=== PATIENT | female | born 1995 | race Caucasian/White ===

== ENCOUNTER 2021-07-18 14:49 | Emergency (ER) | payer OTHER, SELFPAY ==
[2021-07-18 14:54] VITALS: BP 127/76; PULSE 80; RESP 16; TEMP 36.7; O2SAT 98; BMI 26.5
--- NOTE | 2021-07-18 18:38 | ED.EXTPRO ---
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 She states the symptoms have been going on for the past several days. Was a gradual onset. Denies any trauma. No neck pain. No real defined pain in that hand his stress weakness to metal fabricating shop helper and then the tingling. She does have tingling in all of her fingers but it does seem to be localized more to the thumb index and middle finger. She does have neck pain. This neck pain is not new. She has had it for many years. Related Data Previous Rx's Medication Instructions Recorded prednisone 20 mg tablet 20 mg PO DAILY 6 Days #6 tab 07/18/21 Allergies Allergy/AdvReac Type Severity Reaction Status Date / Time No Known Drug Allergies Allergy Verified 07/18/21 15:01 Review of Systems Constitutional Constitutional: Denies fever(s) and Denies headache(s) ENT Ears, Nose, Mouth, and Throat: Denies headache(s) Musculoskeletal Musculoskeletal: Reports system reviewed and no additional complaints, except as documented and Reports as per HPI Integumentary/Breasts Skin/Breast: Reports system reviewed and no additional complaints, except as documented and Reports as per HPI Neurologic Neurologic: Reports system reviewed and no additional complaints, except as documented, Reports as per HPI and Denies headache(s) Hematologic/Lymphatic On Anticoagulants: No Patient History Medical History Chronic neck pain Social History Smoking Status: Never smoker Smoking Status: Never smoker alcohol intake frequency: a few times a month Substance Use Type: does not use Exam Initial Vital Signs Initial Vital Signs: Vital Signs Temperature 98.0 F 07/18/21 14:54 Pulse Rate 80 07/18/21 14:54 Respiratory Rate 16 07/18/21 14:54 Blood Pressure 127/76 07/18/21 14:54 Pulse Oximetry 98 07/18/21 14:54 Const General: cooperative, healthy appearing, comfortable and well developed Limitations: mental status not altered [facility] Head: normal to inspection and normocephalic Resp Effort & Inspection: normal respiratory effort Cardio Pulses: radial pulses present on the left Skin Lesions: no lesions Rashes: no rashes Neuro General: patient alert, patient awake and patient oriented x3 Cognition: normal cognition Gait: normal gait Other: Patient reports decreased sensation to light touch throughout the median ulnar and radial nerve distribution of her left hand although it does seem to be localized more in the median nerve distribution. She does not have a tinel sign. She does have 3/5 metal fabricating shop helper strength on the left compared to a 5/5 on the right. Her wrist flexion and extension are equal bilaterally. Strength is equal bilateral. Flexion extension at the elbow to include strength is equal bilateral. Abduction and adduction to the shoulders are equal bilateral with equal strength. She has a negative Spurling maneuver Extrem General: normal to inspection, capillary refill normal and No edema Psych Appearance: grossly normal and well kempt Course Orders Ordered: Discontinued Medications Prednisone (Prednisone 20 Mg Tablet) 20 mg PO NOW ONE Stop: 07/18/21 18:40 Last Admin: 07/18/21 18:52 Dose: 20 mg Documented by: LATRICIA Vital Signs Vital signs: Vital Signs - 8 hr 07/18/21 14:54 07/18/21 18:54 Temperature 98.0 F Pulse Rate 80 69 Respiratory Rate 16 16 Blood Pressure 127/76 114/75 Pulse Oximetry 98 100 MDM - Extremity (Nontraumatic) MDM Narrative Medical decision making narrative: Low suspicion for fractures hold on any radiologic studies. Initially I thought her presentation would be consistent with carpal tunnel syndrome however the tingling sensation that she is having in her left hand does seem to include all of her fingers and not just the median nerve distribution although granted it is more pronounced in the median nerve distribution. She does have decreased metal fabricating shop helper strength in the left although the strength in her wrist elbow and shoulders are equal. She has no other neurologic symptoms. Unsure the exact etiology the patient's symptoms but given her presentation I feel that this is more of a proximal issue most likely a nerve inflammation. Start her on steroids to help with this for the next couple days. She will then start on anti-inflammatories afterwards. If her symptoms continue or do not improve we did discuss return precautions to include returning to her primary doctor. She expressed understanding and agreement of plan. Discharge Plan Departure Patient Disposition: Home Clinical Impression: Neuropathy Instructions: DI for Numbness/Tingling Activity Restrictions/Additional Instructions: I do recommend that you keep all of your scheduled medical appointments. Use the steroids as directed. They were electronically transmitted to the [facility] [place] After you complete the course of this start on anti-inflammatories such as Motrin/Naprosyn. Return to the emergency department for any worsening symptoms like we discussed. Prescriptions: New prednisone 20 mg tablet 20 mg PO DAILY 6 Days Qty: 6 0RF
[2021-07-18] MEDS: predniSONE 20 MG TABLET PO (18:52)
[2021-07-18 18:54] VITALS: BP 114/75; PULSE 69; RESP 16; O2SAT 100
--- NOTE | 2021-07-19 11:40 | PC.NURSE ---
Pt called stating that [facility] pharmacy in [place] was closed today and requested that script be called into [facility]. Prednisone 20 mg po daily x 6 days , Dr. Peña, No refills, called in. Pt notified by phone.
== END 2021-07-18 18:57 | disposition home or self-care (01) ==
PROVIDERS: Emergency Provider Emergency Medicine
DX: G62.9 Polyneuropathy, unspecified (principal)
CPT/HCPCS: 99283

== ENCOUNTER 2021-08-20 04:20 | Emergency (ER) | payer OTHER, SELFPAY ==
[2021-08-20 04:23] VITALS: BP 161/103; PULSE 80; RESP 18; TEMP 36.6; O2SAT 99; BMI 23.8
--- NOTE | 2021-08-20 04:43 | ED_ITS ---
HPI - Headache General Chief Complaint: Headache Stated Complaint: d/v and migraine x5 days Time Seen by Provider: 08/20/21 04:22 Source: patient Mode of arrival: Ambulatory Limitations: no limitations History of Present Illness HPI Narrative: Patient is a 26-year-old female. Has a history of migraine headaches. Has medications for migraines. States that for the past 5 days she has had a headache which she states is somewhat different to her migraines. In character feels somewhat like prior headaches but this seems to be more intense. Has had nausea but no vomiting. Has tried her medications without much improvement. No fevers. Generally does not feel well. Related Data Previous Rx's Medication Instructions Recorded ondansetron 4 mg disintegrating 4 mg PO Q6H PRN #12 tab 08/20/21 tablet rizatriptan 10 mg tablet See Rx Instructions .ROUTE 08/20/21 .COMPLEX #9 tab Allergies Allergy/AdvReac Type Severity Reaction Status Date / Time No Known Drug Allergies Allergy Verified 07/19/21 11:21 Review of Systems Constitutional Constitutional: Reports body ache(s), Denies fever(s) and Reports headache(s) Eyes Eyes: Reports system reviewed and no additional complaints, except as documented ENT Ears, Nose, Mouth, and Throat: Reports system reviewed and no additional complaints, except as documented and Reports headache(s) Musculoskeletal Musculoskeletal: Reports system reviewed and no additional complaints, except as documented Neurologic Neurologic: Reports system reviewed and no additional complaints, except as documented and Reports headache(s) Hematologic/Lymphatic On Anticoagulants: No Patient History Medical History Chronic neck pain Social History Smoking Status: Never smoker Smoking Status: Never smoker alcohol intake frequency: a few times a month Substance Use Type: does not use Exam Initial Vital Signs Initial Vital Signs: Vital Signs Temperature 97.8 F 08/20/21 04:23 Pulse Rate 80 08/20/21 04:23 Respiratory Rate 18 08/20/21 04:23 Blood Pressure 161/103 H 08/20/21 04:23 Pulse Oximetry 99 08/20/21 04:23 Const General: cooperative HENMT Head: normal to inspection and normocephalic Resp Effort & Inspection: normal respiratory effort Cardio Rate: regular rate Skin General: no rashes or lesions noted Neuro General: patient alert, patient awake and patient oriented x3 Cognition: normal cognition Speech: speech normal Extrem General: normal to inspection and capillary refill normal Psych Appearance: grossly normal and well kempt Course Orders Ordered: ED Orders 08/20/21 04:25 COVID19 -Nasal swab/Pre-Proc Stat 08/20/21 05:03 Basic Metabolic Panel Stat Complete Blood Count AUTO DIFF Stat Discontinued Medications Acetaminophen (Acetaminophen 325 Mg Tablet) 650 mg PO NOW ONE Stop: 08/20/21 04:44 Last Admin: 08/20/21 05:11 Dose: 650 mg Documented by: RYLAND Diphenhydramine HCl (Diphenhydramine 50 Mg/Ml Vial) 25 mg IV NOW ONE Stop: 08/20/21 04:44 Last Admin: 08/20/21 05:13 Dose: 25 mg Documented by: RYLAND Sodium Chloride (Normal Saline 0.9%) 1,000 mls @ 1,000 mls/hr IV BOLUS ONE Stop: 08/20/21 05:42 Last Infusion: 08/20/21 05:46 Dose: 0 mls/hr Documented by: Admin: 08/20/21 05:11 Dose: 1,000 mls/hr Documented by: RYLAND Ketorolac Tromethamine (Ketorolac 30 Mg/Ml Vial) 30 mg IV NOW ONE Stop: 08/20/21 04:44 Last Admin: 08/20/21 05:13 Dose: 30 mg Documented by: RYLAND Metoclopramide HCl (Metoclopramide 10 Mg/2 Ml Inj) 10 mg IV NOW ONE Stop: 08/20/21 04:44 Last Admin: 08/20/21 05:13 Dose: 10 mg Documented by: RYLAND Ondansetron HCl (Ondansetron 4 Mg Odt Prepack) 1 bottle MISC SEEINSTR ONE Stop: 08/20/21 05:33 Last Admin: 08/20/21 05:40 Dose: 1 bottle Documented by: RYLAND Vital Signs Vital signs: Vital Signs - 8 hr 08/20/21 04:23 Temperature 97.8 F Pulse Rate 80 Respiratory Rate 18 Blood Pressure 161/103 H Pulse Oximetry 99 MDM - Headache Lab Data Attestation: I reviewed the patient's lab results. Result diagrams: 08/20/21 05:03 08/20/21 05:03 Labs: Lab Results 08/20/21 08/20/21 08/20/21 Range/Units 04:25 05:03 05:03 WBC 8.1 (4.5-11.0) X10^3/uL RBC 4.40 (4.0-5.2) X10^6/uL Hgb 13.1 (12.0-16.0) g/dL Hct 38.1 (36-46) % MCV 86.6 (80-100) fL MCH 29.7 (26-34) PG MCHC 34.3 (30-36) % RDW 12.8 (11.6-14.8) % Plt Count 260 (150-400) X10^3/uL Neut % (Auto) 63.5 (50-75) % Lymph % (Auto) 28.7 (25-40) % [place] % (Auto) 6.4 (3-14) % Eos % (Auto) 0.8 L (2-4) % Baso % (Auto) 0.6 (0-2) % Neut # (Auto) 5200 (2420-8961) /uL Lymph # (Auto) 2300 (7930-5709) /uL [place] # (Auto) 500 (0-900) /uL Eos # (Auto) 100 (0-450) /uL Baso # (Auto) 100 (0-100) /uL Sodium 138 (137-145) mmol/L Potassium 3.6 (3.4-5.1) mmol/L Chloride 106 (98-107) mmol/L Carbon Dioxide 29 (22-32) mmol/L BUN 8 (7-17) mg/dL Creatinine 0.67 (0.52-1.04) mg/dL Estimated GFR > 60.0 (>60) mL/min BUN/Creatinine Ratio 11.9 (6-22) Glucose 104 H (70-100) mg/dL Calcium 9.7 (8.4-10.2) mg/dL SARS-CoV-2 (PCR) Negative (Negative) Point of Care Testing Test Results Negative Urine Dip Bedside Urine Glucose Negative Bedside Urine Bilirubin - Negative Bedside Urine Ketone - Negative Urine Specific [place] 1.005 Bedside Urine Occult Blood - Negative Bedside Urine pH 7.0 Bedside Urine Protein - Negative Bedside Urine Urobilinogen - Negative Bedside Urine Nitrite - Negative Bedside Urine Leukocytes - Negative Esterase MDM Narrative Medical decision making narrative: Normal neurologic exam. Labs unremarkable patient received medications and shortly afterwards she received a call from her stating that he needed to go into work and that she needed to come home and watch the kids. Patient stated that she needed to leave. She did report some improvement of her symptoms in the short amount of time here. She does have a ride home. I feel that we can hold on radiologic studies. She was given return precautions. She expressed understanding and agreement. Discharge Plan Departure Patient Disposition: Home Clinical Impression: Headache Instructions: DI for Headache Activity Restrictions/Additional Instructions: Use the nausea medication as needed. Try to increase your fluid intake over the next couple days this will most likely help your headache as well. Contact your primary doctor for a follow-up. Return to the emergency department for any new or worsening symptoms Prescriptions: New ondansetron 4 mg tablet,disintegrating 4 mg PO Q6H PRN (Reason: nausea and vomiting) Qty: 12 0RF rizatriptan 10 mg tablet See Rx Instructions .ROUTE .COMPLEX Qty: 9 0RF Rx Instructions: take 1 tab at onset of headache; if no relief may repeat 1 tab after at least 2 hrs; max = 3 tabs/24 hr
[2021-08-20 04:46] LABS: COVID19 -Nasal RAPID Negative (Negative)
[2021-08-20 05:10] LABS: Add Manual Diff / Slide Review NO; Basophils Absolute Auto 100 /uL (0-100); Basophils Percent Auto 0.6 % (0-2); Eosinophils Absolute Auto 100 /uL (0-450); Eosinophils Percent Auto 0.8 % (2-4); Hematocrit 38.1 % (36-46); Hemoglobin 13.1 g/dL (12.0-16.0); Lymphocytes Absolute Auto 2300 /uL (1100-4500); Lymphocytes Percent Auto 28.7 % (25-40); Mean Corpuscular HGB Conc 34.3 % (30-36); Mean Corpuscular Hemoglobin 29.7 PG (26-34); Mean Corpuscular Volume 86.6 fL (80-100); Monocytes Absolute Auto 500 /uL (0-900); Monocytes Percent Auto 6.4 % (3-14); Neutrophils Absolute Auto 5200 /uL (1500-7000); Neutrophils Percent Auto 63.5 % (50-75); Platelet Count 260 X10^3/uL (150-400); Red Cell Distribution Width 12.8 % (11.6-14.8); White Blood Cell Count 8.1 X10^3/uL (4.5-11.0)
[2021-08-20] MEDS: ACETAMINOPHEN 325 MG TABLET 650 MG PO (05:11)
[2021-08-20] MEDS: SODIUM CHLORIDE 0.9% 1,000 ML 1000 ML IV (05:11)
[2021-08-20] MEDS: diphenhydrAMINE 50 MG/ML VIAL 25 MG IV (05:13)
[2021-08-20] MEDS: KETOROLAC 30 MG/ML VIAL IV (05:13)
[2021-08-20] MEDS: METOCLOPRAMIDE 10 MG/2 ML INJ IV (05:13)
[2021-08-20 05:20] LABS: BUN Creatinine Ratio 11.9 (6-22); Blood Urea Nitrogen 8 mg/dL (7-17); Calcium 9.7 mg/dL (8.4-10.2); Carbon Dioxide 29 mmol/L (22-32); Chloride 106 mmol/L (98-107); Estimated Glomerular Filt Rate > 60.0 mL/min (>60); Glucose 104 mg/dL (70-100); HEMOLYSIS < 15 (0-50); Potassium 3.6 mmol/L (3.4-5.1); Sodium 138 mmol/L (137-145)
[2021-08-20] MEDS: ONDANSETRON 4 MG ODT PREPACK 1 BOTTLE MISC (05:40)
== END 2021-08-20 05:54 | disposition home or self-care (01) ==
PROVIDERS: Emergency Provider Emergency Medicine
DX: R51.9 Headache, unspecified (principal); R11.2 Nausea with vomiting, unspecified; Z20.822 Contact with and (suspected) exposure to COVID-19
CPT/HCPCS: 80048; 81003; 81025; 85025; 87635; 96361; 96374; 96375; 99284; C9803; J1200; J1885; J2765

== ENCOUNTER → 2021-11-05 10:41 | Outpatient (CLI) | payer OTHER, SELFPAY ==
--- NOTE | 2021-11-05 10:43 | DI.RAD.S_ITS ---
PROCEDURE: XR CERVICAL SPINE 2V OR 3V INDICATIONS: chronic neck pain TECHNIQUE: 3 view(s) of the cervical spine were acquired. COMPARISON: None. FINDINGS: Bones: No fractures or dislocations to the T1 level. The lateral masses of C1 appear intact on the odontoid view. No suspicious bony lesions. Soft tissues: No prevertebral soft tissue swelling. IMPRESSION: No acute fracture. No osseous lesion. If symptoms and/or clinical suspicion for pathology persist, further assessment with repeat, or advanced imaging (e.g., CT, MRI, or bone scan) may be helpful for further assessment. Dictated by: Solange Mcneill M.D. on 11/05/2021 at 11:44 Approved by: Solange Mcneill M.D. on 11/05/2021 at 11:44
== END ==
PROVIDERS: PCP Family Medicine; Referring Provider Family Medicine; Visit Provider Family Medicine
DX: M54.2 Cervicalgia (principal); R20.0 Anesthesia of skin; G89.29 Other chronic pain; R20.2 Paresthesia of skin
CPT/HCPCS: 72040

== ENCOUNTER → 2021-11-12 15:00 | Outpatient (CLI) | payer OTHER, SELFPAY ==
--- NOTE | 2021-11-12 15:02 | DI.US.S_ITS ---
PROCEDURE: US PELVIC COMPLETE INDICATIONS: Severe dysmenorrhea TECHNIQUE: Real-time scanning was performed of the pelvic organs, with image documentation. Additional endovaginal scanning was necessary due to incomplete visualization of the adnexal and endometrial structures by transabdominal scanning. COMPARISON: None. FINDINGS: Uterus: Uterus is anteverted and normal in size at 7.9 x 3.5 x 4.5 cm. The myometrium is homogeneous. The endometrium measures 3.7 mm combined thickness. Ovaries: The right ovary measures 2.6 x 2.6 x 1.5 cm. The left ovary measures 3.2 x 1.9 x 1.6 cm. The ovaries have a normal sonographic appearance. Less than 12 follicles can be seen in each ovary. No adnexal masses are seen. Other: No pathologic free abdominal or pelvic fluid. IMPRESSION: Unremarkable exam. We strive to produce accurate, complete, and clear reports of imaging services. To assist us in improving patient care, this report was composed using standard report templates and voice recognition software. Therefore, it may contain abnormal punctuation, insertions and/or omissions. Occasional wrong-word or sound-alike substitutions may occur. Though we review the report and make efforts to correct it, we do recommend that the report be read carefully in proper context to recognize any text inaccuracies. Dictated by: Monica Ayala M.D. on 11/12/2021 at 16:34 Approved by: Monica Ayala M.D. on 11/12/2021 at 16:38
== END ==
PROVIDERS: PCP Family Medicine; Referring Provider Obstetrics & Gynecology; Visit Provider Obstetrics & Gynecology
DX: N94.6 Dysmenorrhea, unspecified (principal); N92.1 Excessive and frequent menstruation with irregular cycle; R10.2 Pelvic and perineal pain; G89.29 Other chronic pain
CPT/HCPCS: 76830; 76856

== ENCOUNTER 2021-11-24 20:15 | Emergency (ER) | payer OTHER, SELFPAY ==
[2021-11-24 20:25] VITALS: BP 145/83; PULSE 89; RESP 22; TEMP 37.1; O2SAT 99
--- NOTE | 2021-11-24 20:45 | DI.RAD.S_ITS ---
PROCEDURE: XR CHEST 2V INDICATIONS: cough, fever TECHNIQUE: 2 views of the chest were acquired. COMPARISON: None. FINDINGS: Surgical changes and devices: None. Lungs and pleura: No consolidation. No pleural effusions or pneumothorax. Mediastinum: Mediastinal contours are normal. Heart size is normal. Bones and chest wall: No suspicious bony abnormalities. Soft tissues appear unremarkable. IMPRESSION: No acute cardiopulmonary abnormality. Dictated by: Shyam Munguia M.D. on 11/24/2021 at 21:40 Approved by: Shyam Munguia M.D. on 11/24/2021 at 21:41
--- NOTE | 2021-11-24 20:45 | ED_ITS ---
HPI - URI/Sore Throat General Chief Complaint: Upper Respiratory Symptoms Stated Complaint: COUGH, THROAT SORE, EAR ACHES Time Seen by Provider: 11/24/21 20:35 Source: patient Mode of arrival: Ambulatory History of Present Illness HPI Narrative: 26-year-old female nonsmoker with history of asthma presents with young child with a chief complaint of upper respiratory complaints including runny nose, sneezing, sore throat and cough for the past few days. 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 She has had no measured fever, her cough is dry and hacking and seems to be the biggest of her complaint. She denies the production of sputum. She denies any pain, nausea or vomiting. She has tried various [id number] cough and cold medications and has had little improvement if any Related Data Home Medications Medication Instructions Recorded Confirmed albuterol sulfate 90 mcg/actuation 2 puff INHALATION Q6H PRN 09/10/21 11/05/21 aerosol inhaler clonazepam 1 mg tablet 1 mg PO DAILY PRN 09/10/21 11/05/21 fluticasone propionate 110 1 puff INHALATION Q12H 09/10/21 11/05/21 mcg/actuation HFA aerosol inhaler (Flovent HFA) Previous Rx's Medication Instructions Recorded rizatriptan 10 mg tablet See Rx Instructions .ROUTE 08/20/21 .COMPLEX #9 tab amitriptyline 25 mg tablet 12.5 mg PO BEDTIME #60 tab 09/10/21 buspirone 10 mg tablet 10 mg PO BID #180 tab 09/10/21 pramipexole 0.125 mg tablet 0.25 mg PO BEDTIME #180 tab 09/10/21 topiramate 25 mg tablet 25 mg PO BID #180 tab 09/10/21 escitalopram oxalate 20 mg tablet 40 mg PO DAILY #90 tab 09/24/21 (Lexapro) naproxen 500 mg tablet 500 mg PO Q8H PRN #30 tab 10/10/21 benzonatate 200 mg capsule 200 mg PO BID PRN #20 cap 11/24/21 fluticasone propionate 50 1 spray INTRANASAL BID #16 g 11/24/21 mcg/actuation nasal spray,suspension (Flonase Allergy Relief) Allergies Allergy/AdvReac Type Severity Reaction Status Date / Time No Known Drug Allergies Allergy Verified 10/10/21 10:12 Review of Systems Review of Systems Narrative: GENERAL: See HPI. HEENT: See HPI RESPIRATORY: D see HPI CARDIOVASCULAR: Denies chest pain, palpitations, orthopnea, edema, GASTROINTESTINAL: Denies nausea, vomiting, abdominal pain, diarrhea, constipation, melena. : Denies dysuria, frequency, incontinence, hematuria, urinary retention. MUSCULOSKELETAL: denies weakness, joint pain, or bony pain SKIN: Denies rash, skin lesions, or other NEUROLOGIC: Denies weakness, headache, numbness, change in speech, confusion, seizures, incoordination. PSYCHIATRIC: No concerning psychosocial issues. 12 point review of systems is negative except for those stated above Patient History Medical History (Updated 11/24/21 @ 22:20 by Alexis Barrientos DO) Anxiety Chronic neck pain Depression Insomnia Restless legs syndrome Social History Smoking Status: Never smoker Smoking Status: Never smoker alcohol intake frequency: a few times a month Substance Use Type: does not use Exam Narrative Exam Narrative: GENERAL: 26[] year old patient appears stated age. Well-developed patient, in mild distress. HEAD: Atraumatic. Normocephalic. EYES: Pupils equal round and reactive. Extraocular motions intact. No scleral icterus. No injection or drainage. ENT: Nose without bleeding, purulent drainage. Clear postnasal drainage Throat without erythema, tonsillar hypertrophy or exudate. Airway patent. NECK: Trachea midline. Non tender CARDIOVASCULAR: Regular rate and rhythm without murmurs, gallops, or rubs. RESPIRATORY: Clear to auscultation. Breath sounds equal bilaterally. No wheezes, rales, or rhonchi. GASTROINTESTINAL: Abdomen soft, non-tender, nondistended. EXTREMITIES: No edema or joint tenderness. BACK: Nontender without deformity or crepitance. No flank tenderness. NEURO: AOx3. SKIN: No rash or erythema of visible areas Initial Vital Signs Initial Vital Signs: Vital Signs Temperature 98.7 F 11/24/21 20:25 Pulse Rate 89 11/24/21 20:25 Respiratory Rate 22 11/24/21 20:25 Blood Pressure 145/83 H 11/24/21 20:25 Pulse Oximetry 99 11/24/21 20:25 Course Orders Ordered: ED Orders 11/24/21 20:45 Chest [XR chest 2V] Stat 11/24/21 21:15 COVID19 -Nasal RAPID/Pre-Proc Stat Vital Signs Vital signs: Vital Signs - 8 hr 11/24/21 22:29 Pulse Rate 78 Respiratory Rate 16 Blood Pressure 136/86 Pulse Oximetry 97 MDM - URI/Sore Throat Lab Data Labs: Lab Results 11/24/21 Range/Units 21:15 SARS-CoV-2 (PCR) Negative (Negative) Point of Care Testing Rapid Strep A Negative Imaging Data Chest x-ray: Radiologist's Impression: [address] [address] XRay Report Signed Patient: Alisha Griffin MR#: [id number] : 1995 Acct:[id number] Age/Sex: 26 / F Date of Service: 11/24/21 Loc: ED Accession Number: [id number] ?? Procedure: XR chest 2V Ordering Provider: Alexis Barrientos D.O. PROCEDURE:? XR CHEST 2V ? INDICATIONS:? cough, fever ? TECHNIQUE:? 2 views of the chest were acquired.? ? COMPARISON:? None. ? FINDINGS:? ? Surgical changes and devices:? None.? ? Lungs and pleura:? No consolidation.? No pleural effusions or pneumothorax.? ? Mediastinum:? Mediastinal contours are normal.? Heart size is normal.? ? Bones and chest wall:? No suspicious bony abnormalities.? Soft tissues appear unremarkable.? ? IMPRESSION:? No acute cardiopulmonary abnormality. ? ? ? Dictated by: Shyam Munguia M.D. on 11/24/2021 at 21:40 ? ? Approved by: Shyam Munguia M.D. on 11/24/2021 at 21:41 ? Discharge Plan Departure Patient Disposition: Home Clinical Impression: Upper respiratory virus Instructions: DI for Viral Upper Respiratory Infection -- Adult Activity Restrictions/Additional Instructions: *You have been diagnosed with [viral upper respiratory infection. Her chest x- ray is clear, strep test was negative as is the COVID swab *What to do: *Please continue to take your regular medications as directed. [x ] New medication prescriptions sent to your pharmacy: [[facility] in [place] ] [ ] New medication written as a paper prescription [ ] No new medications given *Please follow up with your primary care provider in 2-3 days, call for an appointment. Let them know you were seen in the Emergency Department and that we ask that you be seen in follow up. We will electronically transmit a record of today's note if your PCP is in our system *If you do not have a primary care provider please contact the [facility] Resource line at [phone]. They will ask some questions about your medical history and help get you set up with a doctor in the community. *Return to Emergency Department if you should have any new, worsening or concerning symptoms, such as [fever greater than 101 F, shaking chills, worsening pain, persistent vomiting or other bothersome symptoms] Prescriptions: New benzonatate 200 mg capsule 200 mg PO BID PRN (Reason: cough) Qty: 20 0RF fluticasone propionate [Flonase Allergy Relief] 50 mcg/actuation spray,suspension 1 spray intranasal BID Qty: 16 0RF Rx Instructions: administer into each nostril No Action escitalopram oxalate [Lexapro] 20 mg tablet 40 mg PO DAILY Qty: 90 3RF clonazepam 1 mg tablet 1 mg PO DAILY PRN0RF amitriptyline 25 mg tablet 12.5 mg PO BEDTIME Qty: 60 0RF albuterol sulfate 90 mcg/actuation HFA aerosol inhaler 2 puff inhalation Q6H PRN0RF Flovent HFA 110 mcg/actuation HFA aerosol inhaler 1 puff inhalation Q12H 0RF pramipexole 0.125 mg tablet 0.25 mg PO BEDTIME Qty: 180 0RF buspirone 10 mg tablet 10 mg PO BID Qty: 180 3RF topiramate 25 mg tablet 25 mg PO BID Qty: 180 3RF Rx Instructions: one tab in am and 2 tabs in the pm naproxen 500 mg tablet 500 mg PO Q8H PRN (Reason: pain) Qty: 30 12RF Rx Instructions: Start medication 2-3 days prior to expected onset of period or when pre- menstrual cramping begins. rizatriptan 10 mg tablet See Rx Instructions .ROUTE .COMPLEX Qty: 9 0RF Rx Instructions: take 1 tab at onset of headache; if no relief may repeat 1 tab after at least 2 hrs; max = 3 tabs/24 hr Referrals: Amish Pierson MD [Primary Care Provider] -
[2021-11-24 21:39] LABS: COVID19 -Nasal RAPID Negative (Negative)
[2021-11-24 22:29] VITALS: BP 136/86; PULSE 78; RESP 16; O2SAT 97
== END 2021-11-24 22:29 | disposition home or self-care (01) ==
PROVIDERS: Emergency Provider Emergency Medicine; PCP Family Medicine
DX: J06.9 Acute upper respiratory infection, unspecified (principal); Z20.822 Contact with and (suspected) exposure to COVID-19
CPT/HCPCS: 71046; 87635; 87880; 99283; C9803

== ENCOUNTER → 2022-03-11 10:02 | Outpatient (CLI) | payer OTHER, SELFPAY ==
[2022-03-11 12:09] LABS: Alanine Aminotransferase 15 IU/L (<35); Albumin 4.4 g/dL (3.5-5.0); Albumin Globulin Ratio 1.6 (1.0-2.8); Alkaline Phosphatase 63 U/L (38-126); Aspartate Aminotransferase 21 IU/L (14-36); BUN Creatinine Ratio 12.1 (6-22); Bilirubin Total 0.4 mg/dL (0.2-1.3); Blood Urea Nitrogen 11 mg/dL (7-17); Calcium 8.9 mg/dL (8.4-10.2); Carbon Dioxide 23 mmol/L (22-32); Chloride 105 mmol/L (98-107); Estimated Glomerular Filt Rate > 60 mL/min (>60); Globulin 2.8 g/dL (1.7-4.1); Glucose 91 mg/dL (70-100); HEMOLYSIS < 15 (0-50); Sodium 139 mmol/L (137-145); Total Protein 7.2 g/dL (6.3-8.2)
[2022-03-12 21:17] LABS: Anti Thyroglobulin Antibody <1.0 IU/mL (0.0-0.9); Thyroid Peroxidase Antibodies 11 IU/mL (0-34)
== END ==
PROVIDERS: PCP Family Medicine; Referring Provider Family Medicine; Visit Provider Family Medicine
DX: F31.9 Bipolar disorder, unspecified (principal); F33.9 Major depressive disorder, recurrent, unspecified; F41.9 Anxiety disorder, unspecified; F51.01 Primary insomnia; Z86.39 Personal history of other endocrine, nutritional and metabolic disease
CPT/HCPCS: 36415; 80053; 86376; 86800

== ENCOUNTER → 2022-03-14 17:46 | Outpatient (CLI) | payer OTHER, SELFPAY ==
[2022-03-14 18:05] LABS: Add Manual Diff / Slide Review NO; Basophils Absolute Auto 100 /uL (0-100); Basophils Percent Auto 0.7 % (0-2); Eosinophils Absolute Auto 200 /uL (0-450); Eosinophils Percent Auto 1.7 % (2-4); Hematocrit 36.1 % (36-46); Hemoglobin 12.4 g/dL (12.0-16.0); Lymphocytes Absolute Auto 2500 /uL (1100-4500); Lymphocytes Percent Auto 26.6 % (25-40); Mean Corpuscular HGB Conc 34.3 % (30-36); Mean Corpuscular Hemoglobin 30.6 PG (26-34); Monocytes Absolute Auto 600 /uL (0-900); Monocytes Percent Auto 5.9 % (3-14); Neutrophils Absolute Auto 6200 /uL (1500-7000); Neutrophils Percent Auto 65.1 % (50-75); Platelet Count 263 X10^3/uL (150-400); Red Blood Cell Count 4.05 X10^6/uL (4.0-5.2); Red Cell Distribution Width 14.2 % (11.6-14.8); White Blood Cell Count 9.5 X10^3/uL (4.5-11.0)
[2022-03-14 18:20] LABS: HEMOLYSIS < 15 (0-50); Iron 42 ug/dL (37-170)
[2022-03-14 18:31] LABS: Percent Iron Saturation 14 % (15-50); Total Iron Binding Capacity 311 ug/dL (265-497); Transferrin 226 mg/dL (206-381)
[2022-03-14 18:53] LABS: TSH w/ Reflex to FT4 1.79 uIU/mL (0.47-4.68)
[2022-03-14 18:59] LABS: Ferritin 28 ng/mL (6-137)
== END ==
PROVIDERS: PCP Family Medicine; Referring Provider Family Medicine; Visit Provider Family Medicine
DX: F31.9 Bipolar disorder, unspecified (principal); F33.9 Major depressive disorder, recurrent, unspecified; F41.9 Anxiety disorder, unspecified; F51.01 Primary insomnia
CPT/HCPCS: 36415; 82728; 83540; 83550; 84439; 84443; 84481; 85025

== ENCOUNTER → 2022-06-30 15:42 | Outpatient (CLI) | payer OTHER, SELFPAY ==
--- NOTE | 2022-06-30 15:43 | DI.RAD.S_ITS ---
PROCEDURE: XR SHOULDER LT MIN 2V INDICATIONS: eval L shoulder pain/subluxation TECHNIQUE: 3 views of the shoulder were acquired. COMPARISON: None. FINDINGS: Bones: No fractures or dislocations. No suspicious bony lesions. Visualized ribs appear intact. Soft tissues: No suspicious soft tissue calcifications. IMPRESSION: No acute radiographic abnormality. If there is high concern for further derangement, consider MRI evaluation. Dictated by: Wilbert Gan M.D. on 06/30/2022 at 16:58 Approved by: Wilbert Gan M.D. on 06/30/2022 at 16:59
== END ==
PROVIDERS: PCP Family Medicine; Referring Provider Registered Nurse Diabetes Educator; Visit Provider Registered Nurse Diabetes Educator
DX: M25.512 Pain in left shoulder (principal); S43.003A Unspecified subluxation of unspecified shoulder joint, initial encounter; G89.29 Other chronic pain
CPT/HCPCS: 73030

== ENCOUNTER → 2022-08-07 13:12 | Outpatient (CLI) | payer OTHER, SELFPAY ==
--- NOTE | 2022-08-07 | DI.MRI.S_ITS ---
PROCEDURE: MR SHOULDER LT WO CON INDICATIONS: Bicipital tendinitis, left shoulder TECHNIQUE: Noncontrast oblique coronal T2 fast spin echo with fat saturation, oblique sagittal T1 spin echo and T2 fast spin echo with fat saturation, axial T1 spin echo and T2 fast spin echo with fat saturation through the shoulder. COMPARISON: [facility], CR, XR SHOULDER LT MIN 2V, 06/30/2022, 16:46. FINDINGS: Image quality: Excellent. Rotator cuff: The supraspinatus, infraspinatus, and subscapularis tendons appear intact throughout. Sagittal images demonstrate no muscle atrophy. Bones and bursae: No bone marrow contusions or fractures. Mild acromioclavicular joint degeneration. The acromion demonstrates conventional anatomy, without an os acromiale. No pathologic subacromial-subdeltoid or subcoracoid bursal fluid is present. Capsule and soft tissues: Labrum is grossly intact The long head of the biceps tendon demonstrates normal location and morphology. The rotator interval appears normal, without fibrosis. The coracohumeral ligament is normal in thickness. IMPRESSION: 1. Mild acromioclavicular joint osteoarthritis. 2. No rotator cuff tear. 3. Negative evaluation of the biceps. Dictated by: Solange Mcneill M.D. on 08/07/2022 at 14:08 Transcribed by: VALENTINE on 08/07/2022 at 14:50 Approved by: Solange Mcneill M.D. on 08/07/2022 at 16:53
== END ==
PROVIDERS: PCP Family Medicine; Referring Provider Orthopaedic Surgery; Visit Provider Orthopaedic Surgery
DX: M75.22 Bicipital tendinitis, left shoulder (principal); M19.012 Primary osteoarthritis, left shoulder
CPT/HCPCS: 73221

== ENCOUNTER → 2022-11-20 15:33 | Outpatient (CLI) | payer OTHER, SELFPAY ==
[2022-11-20 16:32] LABS: Alanine Aminotransferase 23 IU/L (<35); Albumin 4.3 g/dL (3.5-5.0); Albumin Globulin Ratio 1.4 (1.0-2.8); Alkaline Phosphatase 63 U/L (38-126); Aspartate Aminotransferase 25 IU/L (14-36); BUN Creatinine Ratio 16.4 (6-22); Bilirubin Total 0.4 mg/dL (0.2-1.3); Blood Urea Nitrogen 10 mg/dL (7-17); Calcium 9.1 mg/dL (8.4-10.2); Carbon Dioxide 27 mmol/L (22-32); Chloride 102 mmol/L (98-107); Estimated Glomerular Filt Rate > 60 mL/min (>60); Globulin 3.1 g/dL (1.7-4.1); Glucose 87 mg/dL (70-100); HEMOLYSIS < 15 (0-50); Potassium 3.9 mmol/L (3.4-5.1); Sodium 138 mmol/L (137-145); Total Protein 7.4 g/dL (6.3-8.2)
[2022-11-20 16:46] LABS: Free T3, Triiodothyronine Free 5.03 pg/mL (2.77-5.27); Free T4, Direct Thyroxine 0.82 ng/dL (0.78-2.19)
[2022-11-20 17:00] LABS: Thyroid Stimulating Hormone 2.55 uIU/mL (0.47-4.68)
[2022-11-21 02:36] LABS: x Labcorp Estim. Avg Glu (eAG) 103 mg/dL (.); x Labcorp Hemoglobin A1c 5.2 % (4.8-5.6)
[2022-11-22 19:05] LABS: Anti Thyroglobulin Antibody <1.0 IU/mL (0.0-0.9); Thyroid Peroxidase Antibodies <9 IU/mL (0-34)
[2022-11-26 09:21] LABS: Percent Free Testosterone 1.28 % (0.50-2.80); Testosterone Free 0.32 ng/dL (0.10-0.85); Testosterone Total 25.2 ng/dL (10.0-55.0)
== END ==
PROVIDERS: PCP Family Medicine; Referring Provider Family Medicine; Visit Provider Family Medicine
DX: F41.9 Anxiety disorder, unspecified (principal); G25.81 Restless legs syndrome; R63.5 Abnormal weight gain; L68.0 Hirsutism
CPT/HCPCS: 80053; 82627; 83036; 84402; 84403; 84439; 84443; 84481; 86376; 86800

== ENCOUNTER 2022-12-22 21:35 | Emergency (ER) | payer OTHER, SELFPAY ==
[2022-12-22 21:42] VITALS: BP 150/98; PULSE 105; RESP 16; TEMP 37.7; O2SAT 100; BMI 29.2
--- NOTE | 2022-12-22 21:47 | DI.RAD.S_ITS ---
PROCEDURE: XR CHEST 2V INDICATIONS: cough TECHNIQUE: 2 views of the chest were acquired. COMPARISON: [facility], CR, XR CHEST 2V, 11/24/2021, 20:42. FINDINGS: Surgical changes and devices: None. Lungs and pleura: Lungs are clear. No pleural effusions or pneumothorax. Mediastinum: Mediastinal contours are normal. Heart size is normal. Bones and chest wall: No suspicious bony abnormalities. Soft tissues appear unremarkable. IMPRESSION: 1. No acute cardiopulmonary disease. Dictated by: Jimbo Jon M.D. on 12/22/2022 at 22:33 Approved by: Jimbo Jon M.D. on 12/22/2022 at 22:34
[2022-12-22 23:56] VITALS: PULSE 85; O2SAT 99
[2022-12-22 23:57] VITALS: BP 143/76; PULSE 100; O2SAT 98
[2022-12-23] VITALS: BP 148/80; PULSE 96; O2SAT 98
[2022-12-23 00:20] LABS: Adenovirus Not Detected (Not Detect); B. parapertussis Not Detected (Not Detecte); Bordetella pertussis Not Detected (Not Detecte); Chlamydophila pneumoniae Not Detected (Not Detect); Coronavirus 229E Not Detected (Not Detect); Coronavirus HKU1 Not Detected (Not Detect); Coronavirus NL 63 Not Detected (Not Detect); Coronavirus OC43 Not Detected (Not Detect); Human Metapneumovirus Not Detected (Not Detect); Human Rhinovirus/Enterovirus Not Detected (Not Detect); Influenza A Not Detected (Not Detect); Influenza B Not Detected (Not Detect); Mycoplasma pneumoniae Not Detected (Not Detect); Parainfluenza Virus 1 Not Detected (Not Detect); Parainfluenza Virus 2 Not Detected (Not Detect); Parainfluenza Virus 3 Not Detected (Not Detect); Parainfluenza Virus 4 Not Detected (Not Detect); Respiratory Syncytial Virus Not Detected (Not Detect); SARS- CoV-2 Not Detected (Not Detecte)
[2022-12-23 00:30] VITALS: PULSE 100; O2SAT 98
--- NOTE | 2022-12-23 00:35 | ED.GENADULT ---
HPI - General Adult General Chief complaint: Upper Respiratory Symptoms Stated complaint: Cough Time Seen by Provider: 12/22/22 21:46 Source: patient Mode of arrival: Ambulatory History of Present Illness HPI narrative: 27F nonsmoker with history of asthma presents with the chief complaint of about 2 weeks of upper respiratory complaints including nasal congestion that seems to be better after use of flonase, frequent wheezing, dry hacking cough and R ear pain. She's had no fever or chills. She denies sore throat or sputum production. She denies any chest pain or hemoptysis. She has no nausea, vomiting or diarrhea and denies any dysuria, frequency or urgency. She is been taking cetirizine [id number] and Flonase as noted above. She denies travel, history of blood clot or cancer, no lower extremity pain, swelling or redness. Related Data Home Medications Medication Instructions Recorded Confirmed albuterol sulfate 90 mcg/actuation 2 puff inhalation Q6H PRN 09/10/21 11/20/22 aerosol inhaler clonazepam 1 mg tablet 1 mg PO DAILY PRN 09/10/21 11/20/22 Previous Rx's Medication Instructions Recorded naproxen 500 mg tablet 500 mg PO Q8H PRN pain #30 tabs 10/10/21 ondansetron 4 mg disintegrating 4 mg PO Q6H PRN nausea and 05/02/22 tablet vomiting #30 tabs pramipexole 0.125 mg tablet See Rx Instructions .Route 11/27/22 .COMPLEX #180 tabs amitriptyline 25 mg tablet 12.5 mg PO BEDTIME PRN insomnia 12/19/22 #60 tabs azithromycin 250 mg tablet See Rx Instructions PO .COMPLEX #6 12/23/22 tabs benzonatate 200 mg capsule 200 mg PO BID PRN cough #20 caps 12/23/22 Allergies Allergy/AdvReac Type Severity Reaction Status Date / Time No Known Drug Allergies Allergy Verified 06/30/22 14:32 Review of Systems Review of Systems Narrative: GENERAL: See HPI HEENT: See HPI RESPIRATORY: See HPI CARDIOVASCULAR: Denies chest pain, palpitations, orthopnea, edema, GASTROINTESTINAL: Denies nausea, vomiting, abdominal pain, diarrhea, constipation, melena. : Denies dysuria, frequency, incontinence, hematuria, urinary retention. MUSCULOSKELETAL: denies weakness, joint pain, or bony pain SKIN: Denies rash, skin lesions, or other NEUROLOGIC: Denies weakness, headache, numbness, change in speech, confusion, seizures, incoordination. PSYCHIATRIC: No concerning psychosocial issues. 12 point review of systems is negative except for those stated above Patient History Medical History Anxiety Body posture problem Cervical somatic dysfunction Chronic bilateral low back pain without sciatica Chronic neck pain Cranial somatic dysfunction Depression Insomnia Left shoulder pain Lumbar region somatic dysfunction Pelvic somatic dysfunction Restless legs syndrome Sacral region somatic dysfunction Segmental and somatic dysfunction of abdomen and other regions Segmental and somatic dysfunction of rib cage Thoracic region somatic dysfunction Social History Smoking Status: Never smoker Smoking Status: Never smoker alcohol intake frequency: a few times a month Substance Use Type: does not use Exam Narrative Exam Narrative: GENERAL: [27] year old patient appears stated age. Well-developed patient, in mild distress. Frequent dry hacking cough no respiratory distress HEAD: Atraumatic. Normocephalic. EYES: Pupils equal round and reactive. Extraocular motions intact. No scleral icterus. No injection or drainage. ENT: Nose without bleeding, purulent drainage. Throat without erythema, tonsillar hypertrophy or exudate. Airway patent. Left tympanic membrane is clear, flat with normal landmarks. Right tympanic membrane is bulging with loss of landmarks and opacified with purulent effusion NECK: Trachea midline. Non tender CARDIOVASCULAR: Regular rate and rhythm without murmurs, gallops, or rubs. RESPIRATORY: Clear to auscultation. Breath sounds equal bilaterally. No wheezes, rales, or rhonchi. GASTROINTESTINAL: Abdomen soft, non-tender, nondistended. EXTREMITIES: No edema or joint tenderness. BACK: Nontender without deformity or crepitance. No flank tenderness. NEURO: AOx3. SKIN: No rash or erythema of visible areas Initial Vital Signs Initial Vital Signs: Vital Signs Temperature 100 F H 12/22/22 21:42 Pulse Rate 105 H 12/22/22 21:42 Respiratory Rate 16 12/22/22 21:42 Blood Pressure 150/98 H 12/22/22 21:42 Pulse Oximetry 100 12/22/22 21:42 Oxygen Delivery Method Room Air 12/22/22 21:42 Course Orders Ordered: ED Orders 12/22/22 21:15 Respiratory Panel (Film Array) Stat 12/22/22 21:47 XR chest 2V Stat Discontinued Medications Albuterol (Albuterol Hfa Prepack) 1 box MISC SEEINSTR ONE Stop: 12/23/22 00:44 Last Admin: 12/23/22 00:58 Dose: 1 box Documented By: ZHerman Vital Signs Vital signs: Vital Signs - 8 hr 12/22/22 21:42 12/22/22 23:56 12/22/22 23:57 Temperature 100 F H Pulse Rate 105 H 85 Respiratory Rate 16 Blood Pressure 150/98 H 143/76 H Pulse Oximetry 100 99 Oxygen Delivery Method Room Air 12/22/22 23:57 12/23/22 00:00 12/23/22 00:00 Temperature Pulse Rate 100 H 96 H Respiratory Rate Blood Pressure 148/80 H Pulse Oximetry 98 98 Oxygen Delivery Method 12/23/22 01:08 12/23/22 00:30 12/23/22 01:00 Temperature 97.4 F L Pulse Rate 92 H 100 H 96 H Respiratory Rate 18 Blood Pressure 136/74 Pulse Oximetry 98 98 98 Oxygen Delivery Method Room Air Medical Decision Making Lab Data Labs: Lab Results 12/22/22 Range/Units 21:15 Chlamy pneumoniae PCR Not detected (Not Detect) Adenovirus (PCR) Not detected (Not Detect) B. pertussis DNA (PCR) Not detected (Not Detecte) B.parapertussis DNA PCR Not detected (Not Detecte) Coronavirus OC43 (PCR) Not detected (Not Detect) Coronavirus HKU1 (PCR) Not detected (Not Detect) Coronavirus 229E (PCR) Not detected (Not Detect) SARS-CoV-2 (PCR) Not detected (Not Detecte) Coronavirus NL63 (PCR) Not detected (Not Detect) Human Metapneumovir PCR Not detected (Not Detect) Influenza Type A (PCR) Not detected (Not Detect) Influenza Type B (PCR) Not detected (Not Detect) M. pneumoniae (PCR) Not detected (Not Detect) Parainfluenza 1 (PCR) Not detected (Not Detect) Parainfluenza 2 (PCR) Not detected (Not Detect) Parainfluenza 3 (PCR) Not detected (Not Detect) Parainfluenza 4 (PCR) Not detected (Not Detect) RSV (PCR) Not detected (Not Detect) Entero/Rhino (PCR) Not detected (Not Detect) MDM Narrative Medical decision making narrative: [27] year old patient presents with cough and ear pain Multiple etiologies for patient's symptoms considered including, but not limited to: [viral URI, atypical pneumonia, pneumonia, otitis vs. other] Prior Charts reviewed in our EMR Primary Historian: patient Labs reviewed and interpreted by myself:Respiratory panel without findings Imaging reviewed: CXR without acute findings Patient's symptoms improved over duration of stay with above-stated therapies. Chest x-ray is clear but given duration of symptoms and purulence sputum we discussed the possible utility of antibiotic coverage for atypical pneumonia. Furthermore her exam demonstrates a bulging right tympanic membrane that is opacified by purulent effusion worthy of antibiotic treatment. Azithromycin is chosen given its ability to cover both diagnoses. She demonstrates no significant respiratory distress nor need for supplemental oxygen. She improve with bronchodilators and is appropriate for discharge Findings and discharge diagnosis discussed with patient/family followed by verbalization of understanding Return precautions discussed with patient/family whom verbalize understanding of diagnosis and plan Discharge Plan Departure Patient Disposition: Home Clinical Impression: Otitis media, Atypical pneumonia, Asthma exacerbation Instructions: Middle Ear Infection, DI for Asthma -- Adult, DI for Atypical Pneumonia Activity Restrictions/Additional Instructions: *You have been diagnosed with [asthma exacerbation, atypical pneumonia and right otitis media] *What to do: *Please continue to take your regular medications as directed. [x ] New medication prescriptions sent to your pharmacy: [[facility] ] [ ] New medication written as a paper prescription [ ] No new medications given *Please follow up with your primary care provider in 2-3 days, call for an appointment. Let them know you were seen in the Emergency Department and that we ask that you be seen in follow up. We will electronically transmit a record of today's note if your PCP is in our system *If you do not have a primary care provider please contact the [facility] Resource line at [phone]. They will ask some questions about your medical history and help get you set up with a doctor in the community. *Return to Emergency Department if you should have any new, worsening or concerning symptoms, such as [fever greater than 101 F, shaking chills, worsening pain, persistent vomiting or other bothersome symptoms] Prescriptions: New benzonatate 200 mg capsule 200 mg PO BID PRN (Reason: cough) Qty: 20 0RF azithromycin 250 mg tablet See Rx Instructions .ROUTE .COMPLEX Qty: 6 0RF Rx Instructions: For 250 mg dose pack: take 500 mg today (day 1), then 250 mg for 4 days (days 2-5) No Action ondansetron 4 mg tablet,disintegrating 4 mg PO Q6H PRN (Reason: nausea and vomiting) Qty: 30 0RF pramipexole 0.125 mg tablet See Rx Instructions .ROUTE .COMPLEX Qty: 180 3RF Dose Instruction: TAKE 2 TABLETS BY MOUTH AT BEDTIME Rx Instructions: TAKE 2 TABLETS BY MOUTH AT BEDTIME amitriptyline 25 mg tablet 12.5 mg PO BEDTIME PRN (Reason: insomnia) Qty: 60 0RF clonazepam 1 mg tablet 1 mg PO DAILY PRN albuterol sulfate 90 mcg/actuation HFA aerosol inhaler 2 puff inhalation Q6H PRN naproxen 500 mg tablet 500 mg PO Q8H PRN (Reason: pain) Qty: 30 12RF Rx Instructions: Start medication 2-3 days prior to expected onset of period or when pre-menstrual cramping begins. Referrals: Amish Pierson MD [Primary Care Provider] - Stand Alone Forms: Patient Portal/API
[2022-12-23] MEDS: ALBUTEROL HFA PREPACK 1 BOX MISC (00:58)
[2022-12-23 01:00] VITALS: PULSE 96; O2SAT 98
[2022-12-23 01:08] VITALS: BP 136/74; PULSE 92; RESP 18; TEMP 36.3; O2SAT 98
== END 2022-12-23 01:09 | disposition home or self-care (01) ==
PROVIDERS: Emergency Provider Emergency Medicine; PCP Family Medicine
DX: H66.91 Otitis media, unspecified, right ear (principal); J18.9 Pneumonia, unspecified organism; J45.901 Unspecified asthma with (acute) exacerbation; Z20.822 Contact with and (suspected) exposure to COVID-19
CPT/HCPCS: 71046; 87633; 99282; 99283

== ENCOUNTER → 2023-02-19 07:44 | Outpatient (CLI) | payer OTHER, SELFPAY | PROVIDERS: PCP Family Medicine; Referring Provider Family Medicine; Visit Provider Family Medicine | DX: Q79.60 Ehlers-Danlos syndrome, unspecified (principal) | CPT/HCPCS: 93246 ==

== ENCOUNTER → 2023-04-16 09:11 | Outpatient (CLI) | payer OTHER, SELFPAY ==
--- NOTE | 2023-04-16 09:12 | DI.ECHO.S_ITS ---
[facility] +---------+ [facility] +---------+ : : [address] : [place] : : : : [id number] : : : : Phone: [phone]+ Echocardiogram Report + + :Name: ETHEL ELDRIDGE Study Date: 04/16/2023 Height: 62 in : :[facility] ReadingLocation: Weight: 155 lb : : Gender: Female BSA: 1.7 m2 : :: 1995 Age: 27 yrs BP: 131/87 mmHg: :Reason For Study: ARUNA-DANLOS SYNDROM : :Ordering Physician: RAÚL, : :MERRITT Performed By: Yoly Escobar : :Referring: MERRITT OLSEN : + + Interpretation Summary Normal sinus rhythm. Normal LV size, wall thickness, wall motion and LV systolic function. EF is 60-65%. Normal chamber sizes. No valvular abnormalities. Ascending aorta diameter is normal (2.3 cm). No evidence of cardiac Aruna-Danols syndrome. Procedure: A two-dimensional transthoracic echocardiogram with color flow and Doppler was performed. The study quality was technically adequate. There is no prior echocardiogram noted for this patient. The patient was in sinus rhythm with heart rates between 76-92 bpm during the exam. Left Ventricle: The left ventricle is normal in size and wall thickness. The ejection fraction is estimated to be 60-65%. Right Ventricle: The right ventricle is normal in size and function. Atria: The left atrial size is normal. Right atrial size is normal. There is no Doppler evidence for an interatrial shunt. Mitral Valve: The mitral valve is normal in structure and function. There is no mitral regurgitation noted. Aortic Valve: The aortic valve is trileaflet. The aortic valve opens well. There is no aortic valve stenosis. No aortic regurgitation is present. Tricuspid Valve: The tricuspid valve is normal in structure and function. No tricuspid regurgitation. Pulmonic Valve: The pulmonic valve leaflets are thin and pliable; valve motion is normal. There is trace pulmonic regurgitation. Great Vessels: The aortic root is normal size. The dimensions of the ascending aorta are normal. The IVC is of normal diameter and collapses greater than 50% with a sniff. This suggests a low right atrial pressure of 3 mm Hg. Pericardium/ Pleura There is no pericardial effusion. There is no pleural effusion. MMode/2D Measurements & Calculations LVIDd: 4.3 cm LVOT diam: 2.0 cm LVIDs: 2.7 cm Ao root diam: 2.4 cm FS: 37.6 % asc Aorta Diam: 2.3 cm EPSS: 0.35 cm Ao Arch Diam (Prox Trans): 2.2 cm IVSd: 0.82 cm LVPWd: 0.66 cm LV miller. diameter/BSA (cm/m^2): 2.5 LV sys. diameter/BSA (cm/m^2): 1.6 LA A2 area: 11.1 cm2 RA long axis: 3.8 cm LA A4 area: 11.3 cm2 RA area: 11.1 cm2 LA length (vol): 4.2 cm RA vol: 27.6 ml LA vol: 25.8 ml RA : 16.1 ml/m2 LA vol index: 15.0 ml/m2 IVC diam: 1.1 cm RVD1 (basal): 3.2 cm RVD2 (mid): 2.6 cm TAPSE: 2.0 cm Doppler Measurements & Calculations Ao V2 max: 106.4 cm/sec LVOT Max Benitez: 83.4 cm/sec Ao V2 mean: 75.8 cm/sec LV V1 max P.8 mmHg Ao max P.5 mmHg LV V1 VTI: 16.3 cm Ao mean P.6 mmHg GAIL(I,D): 2.3 cm2 Ao V2 VTI: 21.9 cm GAIL(V,D): 2.4 cm2 sev ratio: 0.74 GAIL indexed to BSA (cm^2/m^2): 1.3 MV E max benitez: 82.6 cm/sec PA V2 max: 111.2 cm/sec MV A max benitez: 44.7 cm/sec PA V2 mean: 76.6 cm/sec MV E/A: 1.8 PA mean P.6 mmHg Med Peak E' Benitez: 13.8 cm/sec PA pr(Accel): 10.5 mmHg E/E' med: 6.0 Lat Peak E' Benitez: 15.8 cm/sec E/E' lat: 5.2 E/e' average: 5.6 MV dec time: 0.12 sec SV([facility]): 50.2 ml Electronically signed by: Jessica Quesada M.D. on Reading Physician:04/17/2023 01:22 AM
== END ==
PROVIDERS: PCP Family Medicine; Referring Provider Family Medicine; Visit Provider Family Medicine
DX: Q79.60 Ehlers-Danlos syndrome, unspecified (principal)
CPT/HCPCS: 93306

== ENCOUNTER 2023-06-22 13:22 | Emergency (ER) | payer OTHER, SELFPAY ==
[2023-06-22 13:32] VITALS: BP 131/62; PULSE 104; RESP 16; TEMP 37; O2SAT 100; BMI 26.9
[2023-06-22 14:17] VITALS: BP 140/85; PULSE 87; O2SAT 100
[2023-06-22 16:14] VITALS: BP 131/74; PULSE 87; O2SAT 100
--- NOTE | 2023-06-22 16:47 | ED_ITS ---
HPI - Headache <Karen Wilcox PA-C - Last Filed: 06/22/23 17:13> General Chief Complaint: Headache Stated Complaint: DR wolf N/vision blurry/BP 143/97 Time Seen by Provider: 06/22/23 14:41 Mode of arrival: Ambulatory History of Present Illness HPI Narrative: 28-year-old female with past medical history asthma, depression, anxiety, Aruna-Danlos syndrome, recently diagnosed with POTS and dysautonomia presents to the ED for 1 day of headache, dizziness, nausea. Patient states that she was driving her car, when she had acute onset nausea, followed by a headache and dizziness. Patient describes the dizziness as things moving around her and is aggravated by movement of her head. Patient denies vomiting. Patient also endorses palpitations intermittently since her headache started. Patient denies fever, chills, rhinorrhea, cough, chest pain, shortness of breath, abdominal pain, vision changes, lightheadedness, dizziness, syncope. Patient denies . Patient states that currently in the ED she is experiencing a mild headache and some dizziness. Other symptoms have resolved. Related Data Home Medications Medication Instructions Recorded Confirmed albuterol sulfate 90 mcg/actuation 2 puff inhalation Q6H PRN 09/10/21 03/31/23 aerosol inhaler clonazepam 1 mg tablet 1 mg PO DAILY PRN 09/10/21 03/31/23 gabapentin 100 mg capsule 100 mg PO DAILY 03/31/23 03/31/23 Previous Rx's Medication Instructions Recorded naproxen 500 mg tablet 500 mg PO Q8H PRN pain #30 tabs 10/10/21 ondansetron 4 mg disintegrating 4 mg PO Q6H PRN nausea and 05/02/22 tablet vomiting #30 tabs pramipexole 0.125 mg tablet See Rx Instructions .Route 11/27/22 .COMPLEX #180 tabs amitriptyline 25 mg tablet 25 mg PO BEDTIME PRN insomnia #90 12/26/22 tabs bupropion HCl 150 mg 24 hr tablet, 300 mg (2 x 150 mg) PO QAM #60 tabs 04/28/23 extended release meclizine 12.5 mg tablet 12.5 mg PO BID-QID PRN dizziness 06/22/23 #20 tabs Allergies Allergy/AdvReac Type Severity Reaction Status Date / Time No Known Drug Allergies Allergy Verified 03/31/23 15:09 Review of Systems <Karen Wilcox PA-C - Last Filed: 06/22/23 17:13> Constitutional Constitutional: Denies chills, Denies fatigue, Denies fever(s), Denies frequent falls, Reports headache(s), Denies lethargy and Denies weakness Eyes Eyes: Denies change in vision, Denies eye discharge, Denies irritation and Denies loss of vision ENT Ears, Nose, Mouth, and Throat: Denies change in voice, Reports dizziness, Reports headache(s), Denies neck pain, Denies sore throat and Denies throat swelling Cardiovascular Cardiovascular: Denies chest pain, Denies irregular heart rhythm, Denies lightheadedness, Denies palpitations, Denies dyspnea, Denies dyspnea on exertion and Denies orthopnea Respiratory Respiratory: Denies cough, Denies dyspnea, Denies dyspnea on exertion and Denies wheezing Gastrointestinal Gastrointestinal: Denies abdominal pain, Denies change in bowel habits, Denies diarrhea, Reports nausea and Denies vomiting Musculoskeletal Musculoskeletal: Denies neck pain and Denies numbness Integumentary/Breasts Skin/Breast: Denies pruritus, Denies erythema, Denies rash and Denies wounds Neurologic Neurologic: Denies behavioral changes, Denies confusion, Reports dizziness, Denies frequent falls, Reports headache(s), Denies loss of vision, Denies numbness and Denies weakness Psychiatric Psychiatric: Denies anxiety, Denies behavioral changes, Denies confusion, Denies depression, Denies homicidal ideation and Denies suicidal ideation Endocrine Endocrine: Denies fatigue, Denies flushing and Denies palpitations Hematologic/Lymphatic Hematologic/Lymphatic: Denies easy bruising Allergic/Immunologic Allergic/Immunologic: Denies urticaria, Denies throat swelling and Denies wheezing Patient History <Karen Wilcox PA-C - Last Filed: 06/22/23 17:13> Medical History (Updated 06/22/23 @ 16:09 by Karen Wilcox PA-C) EDS (Aruna-Danlos syndrome) Left shoulder pain Segmental and somatic dysfunction of rib cage Segmental and somatic dysfunction of abdomen and other regions Sacral region somatic dysfunction Pelvic somatic dysfunction Lumbar region somatic dysfunction Thoracic region somatic dysfunction Cervical somatic dysfunction Cranial somatic dysfunction Chronic bilateral low back pain without sciatica Body posture problem Insomnia Restless legs syndrome Depression Anxiety Chronic neck pain Social History Smoking Status: Never smoker Smoking Status: Never smoker alcohol intake frequency: a few times a month Substance Use Type: does not use Exam <Karen Wilcox PA-C - Last Filed: 06/22/23 17:13> Narrative Exam Narrative: Const General:?cooperative, healthy appearing and comfortable HENMT Head:?normal to inspection Ears:?hearing grossly normal bilaterally Nose:?external nose normal Face and sinus:?normal facial exam and sinuses nontender Mouth:?oral mucosae normal Throat:?posterior oropharynx normal Eyes General:?appearance normal, both eyes and all related structures Neck Neck:?normal visual inspection and no lymphadenopathy noted Resp Effort & Inspection:?normal respiratory effort Auscultation:?clear to auscultation bilaterally Cardio Rate:?regular rate Rhythm:?regular rhythm GI Abdomen is soft, nondistended. There is mild tenderness to palpation in the epigastric region. Neuro General:?patient alert, patient awake and patient oriented x3; PERRLA; CN 1 through 12 intact bilaterally; gait normal Initial Vital Signs Initial Vital Signs: Vital Signs Temperature 98.6 F 06/22/23 13:32 Pulse Rate 104 H 06/22/23 13:32 Respiratory Rate 16 06/22/23 13:32 Blood Pressure 131/62 06/22/23 13:32 Pulse Oximetry 100 06/22/23 13:32 Oxygen Delivery Method Room Air 06/22/23 13:32 <Nohemy Elaine DO - Last Filed: 06/22/23 18:58> Initial Vital Signs Initial Vital Signs: Vital Signs Temperature 98.6 F 06/22/23 13:32 Pulse Rate 104 H 06/22/23 13:32 Respiratory Rate 16 06/22/23 13:32 Blood Pressure 131/62 06/22/23 13:32 Pulse Oximetry 100 06/22/23 13:32 Oxygen Delivery Method Room Air 06/22/23 13:32 Course <Karen Wilcox PA-C - Last Filed: 06/22/23 17:13> Orders Ordered: ED Orders 06/22/23 14:32 EKG-12 Lead Stat Vital Signs Vital signs: Vital Signs - 8 hr 06/22/23 13:32 06/22/23 14:17 06/22/23 16:14 Temperature 98.6 F Pulse Rate 104 H 87 87 Respiratory Rate 16 Blood Pressure 131/62 140/85 131/74 Pulse Oximetry 100 100 100 Oxygen Delivery Method Room Air Room Air Room Air <Nohemy Elaine DO - Last Filed: 06/22/23 18:58> Orders Ordered: ED Orders 06/22/23 14:32 EKG-12 Lead Stat Vital Signs Vital signs: Vital Signs - 8 hr 06/22/23 13:32 06/22/23 14:17 06/22/23 16:14 Temperature 98.6 F Pulse Rate 104 H 87 87 Respiratory Rate 16 Blood Pressure 131/62 140/85 131/74 Pulse Oximetry 100 100 100 Oxygen Delivery Method Room Air Room Air Room Air MDM - Headache <Karen Wilcox PA-C - Last Filed: 06/22/23 17:13> MDM Narrative Medical decision making narrative: 28-year-old female with past medical history asthma, depression, anxiety, Aruna-Danlos syndrome, recently diagnosed with POTS and dysautonomia presents to the ED for 1 day of headache, dizziness, nausea. Obtain EKG to rule out arrhythmias. EKG shows sinus tachycardia, no acute ST-T elevations. Patient's history and physical exam is most consistent with BPPV versus migraine versus other. Prescribed meclizine. Recommend follow-up with PCP and her neurologist for further evaluation. Patient is currently being worked up for POTS and dysautonomia by her neurologist. ED return precautions discussed with patient. Patient verbalized understanding. Medical records reviewed: Yes Discharge Plan Departure Patient Disposition: Home Clinical Impression: Dizziness Instructions: Vertigo Activity Restrictions/Additional Instructions: You were evaluated in the ED today for dizziness, nausea. Your physical exam was reassuring, your dizziness is most likely consistent with vertigo vs migraine. You are being prescribed meclizine for the dizziness. Please take it as prescribed. Please follow-up with your PCP and neurologist as soon as possible. Please stay well hydrated. Return to the ED if you have worsening symptoms, persistent vomiting, chest pain. Prescriptions: New meclizine 12.5 mg tablet 12.5 mg PO BID-QID PRN (Reason: dizziness) Qty: 20 0RF No Action bupropion HCl 150 mg tablet extended release 24 hr 300 mg PO QAM Qty: 60 3RF ondansetron 4 mg tablet,disintegrating 4 mg PO Q6H PRN (Reason: nausea and vomiting) Qty: 30 0RF pramipexole 0.125 mg tablet See Rx Instructions .ROUTE .COMPLEX Qty: 180 3RF Dose Instruction: TAKE 2 TABLETS BY MOUTH AT BEDTIME Rx Instructions: TAKE 2 TABLETS BY MOUTH AT BEDTIME amitriptyline 25 mg tablet 25 mg PO BEDTIME PRN (Reason: insomnia) Qty: 90 2RF clonazepam 1 mg tablet 1 mg PO DAILY PRN albuterol sulfate 90 mcg/actuation HFA aerosol inhaler 2 puff inhalation Q6H PRN naproxen 500 mg tablet 500 mg PO Q8H PRN (Reason: pain) Qty: 30 12RF Rx Instructions: Start medication 2-3 days prior to expected onset of period or when pre- menstrual cramping begins. gabapentin 100 mg capsule 100 mg PO DAILY Referrals: Amish Pierson MD [Primary Care Provider] - Stand Alone Forms: Patient Portal/API ED Sign-out <Nohemy Elaine DO - Last Filed: 06/22/23 18:58> Cosign ED Attending Timothy Attestation: I was available for consultation.
== END 2023-06-22 16:20 | disposition home or self-care (01) ==
PROVIDERS: Emergency Provider Student in an Organized Health Care Education/Training Program; PCP Family Medicine
DX: R42 Dizziness and giddiness (principal); R07.9 Chest pain, unspecified
CPT/HCPCS: 93005; 93010; 99281; 99283

== ENCOUNTER → 2023-09-18 11:04 | Outpatient (CLI) | payer OTHER, SELFPAY | LOC: LAB 11:06 | PROVIDERS: PCP Family Medicine; Referring Provider Internal Medicine Cardiovascular Disease; Visit Provider Internal Medicine Cardiovascular Disease | DX: Q79.60 Ehlers-Danlos syndrome, unspecified (principal); G90.A Postural orthostatic tachycardia syndrome [POTS]; R00.0 Tachycardia, unspecified | CPT/HCPCS: 36415; 82384 ==

== ENCOUNTER → 2023-09-21 17:37 | Outpatient (CLI) | payer OTHER, SELFPAY ==
[2023-10-01 22:42] LABS: Creatinine, 24 Urine 1219 mg/24 hr (800-1800); Creatinine,Urine 90.3 mg/dL (Not Estab.); Dopamine, Ur 24hr 217 ug/24 hr (0-510); Epinephrine, U 24hr 3 ug/24 hr (0-20); Norepinephrine Ur 24hr 32 ug/24 hr (0-135)
== END ==
PROVIDERS: PCP Family Medicine; Referring Provider Internal Medicine Cardiovascular Disease; Visit Provider Internal Medicine Cardiovascular Disease
DX: Q79.60 Ehlers-Danlos syndrome, unspecified (principal); G90.A Postural orthostatic tachycardia syndrome [POTS]; R00.0 Tachycardia, unspecified
CPT/HCPCS: 82384; 82540

== ENCOUNTER → 2023-12-02 15:53 | Outpatient (CLI) | payer OTHER, SELFPAY ==
[2023-12-02 17:07] LABS: HCG Quantitative /Beta subunit 845.5 mIU/mL
== END ==
LOC: LAB 15:56
PROVIDERS: PCP Family Medicine; Referring Provider Specialist; Visit Provider Specialist
DX: N91.2 Amenorrhea, unspecified (principal)
CPT/HCPCS: 36415; 84702

== ENCOUNTER → 2023-12-04 16:18 | Outpatient (CLI) | payer OTHER, SELFPAY ==
[2023-12-04 18:35] LABS: HCG Quantitative /Beta subunit 1985.3 mIU/mL
== END ==
PROVIDERS: PCP Family Medicine; Referring Provider Specialist; Visit Provider Specialist
DX: N91.2 Amenorrhea, unspecified (principal)
CPT/HCPCS: 36415; 84702

== ENCOUNTER → 2023-12-22 09:47 | Outpatient (CLI) | payer OTHER, SELFPAY ==
[2023-12-22 10:23] LABS: Add Manual Diff / Slide Review NO; Basophils Absolute Auto 100 /uL (0-100); Basophils Percent Auto 0.8 % (0-2); Eosinophils Absolute Auto 0 /uL (0-450); Eosinophils Percent Auto 0.5 % (2-4); Hematocrit 35.2 % (36-46); Hemoglobin 12.2 g/dL (12.0-16.0); Lymphocytes Absolute Auto 1500 /uL (1100-4500); Lymphocytes Percent Auto 20.5 % (25-40); Mean Corpuscular HGB Conc 34.6 % (30-36); Mean Corpuscular Hemoglobin 30.6 PG (26-34); Mean Corpuscular Volume 88.5 fL (80-100); Monocytes Absolute Auto 400 /uL (0-900); Monocytes Percent Auto 5.5 % (3-14); Neutrophils Absolute Auto 5400 /uL (1500-7000); Neutrophils Percent Auto 72.7 % (50-75); Platelet Count 220 X10^3/uL (150-400); Red Blood Cell Count 3.98 X10^6/uL (4.0-5.2); Red Cell Distribution Width 12.9 % (11.6-14.8); White Blood Cell Count 7.5 X10^3/uL (4.5-11.0)
[2023-12-22 10:50] LABS: Alanine Aminotransferase 35 IU/L (<35); Aspartate Aminotransferase 32 IU/L (14-36); BUN Creatinine Ratio 11.9 (6-22); Blood Urea Nitrogen 7 mg/dL (7-17); Estimated Glomerular Filt Rate > 60 mL/min (>60); Uric Acid 2.4 mg/dL (2.5-6.2)
[2023-12-22 11:30] LABS: Hepatitis B Surface Antigen NEGATIVE s/c (NEGATIVE); Rubella Antibody IgG 21.8 IU/mL (>15)
[2023-12-22 11:45] LABS: HIV 1 & 2 Ab/Ag 4th Gen Combo NEGATIVE (NEGATIVE); Hep C Virus Ab w/Reflex Quant NEGATIVE s/c (NEGATIVE)
[2023-12-23 11:41] LABS: RPR Screen Non Reactive (Non Reactive); Varicella IgG Antibody 733 index (Immune >165)
== END ==
PROVIDERS: PCP Family Medicine; Referring Provider Obstetrics & Gynecology; Visit Provider Obstetrics & Gynecology
DX: O09.299 Supervision of pregnancy with other poor reproductive or obstetric history, unspecified trimester (principal)
CPT/HCPCS: 36415; 80055; 82565; 84450; 84460; 84520; 84550; 86787; 86803; 86850; 86900; 86901; 87086; 87389

== ENCOUNTER → 2024-01-12 09:02 | Outpatient (CLI) | payer OTHER, SELFPAY ==
[2024-01-12 10:44] LABS: Natera Collection Specimen Collected
== END ==
PROVIDERS: PCP Family Medicine; Referring Provider Obstetrics & Gynecology; Visit Provider Obstetrics & Gynecology
DX: Z34.01 Encounter for supervision of normal first pregnancy, first trimester (principal); Z3A.10 10 weeks gestation of pregnancy
CPT/HCPCS: 36415

== ENCOUNTER 2024-02-09 14:51 | Observation (INO) | payer OTHER, MEDICAID, SELFPAY ==
[2024-02-09] MEDS: LACTATED RINGERS 1,000 ML 1000 ML IV (15:12)
[2024-02-09] MEDS: ONDANSETRON 4 MG/2 ML INJ IV (15:20)
--- NOTE | 2024-02-09 16:03 | PC.NURSE ---
1500- Antepartum pt presents to [facility] for IV infusion therapy. 20g IV started in right forearm. See EMAR for all meds given. Ice chips and gingerale given to pt.
[2024-02-09] MEDS: ACETAMINOPHEN 325 MG TABLET 650 MG PO (16:15)
[2024-02-09] MEDS: MULTIVITAMIN 10 ML in LACTATED RINGERS 1,000 ML 1000 ML IV (16:15)
== END 2024-02-09 17:00 | disposition home or self-care (01) ==
PROVIDERS: Admitting Provider Obstetrics & Gynecology; PCP Family Medicine; Referring Provider Obstetrics & Gynecology; Visit Provider Obstetrics & Gynecology
DX: O21.0 Mild hyperemesis gravidarum (principal)
CPT/HCPCS: 96360; 96361; G0378; G0379; J2405

== ENCOUNTER → 2024-03-10 06:47 | Outpatient (CLI) | payer OTHER, SELFPAY ==
--- NOTE | 2024-03-10 06:48 | DI.US.S_ITS ---
PROCEDURE: US OB >= 14 WEEKS FETUS INDICATIONS: anatomy scan OUTSIDE/PRIOR DATING DATA: Last menstrual period (LMP): 11/03/2023. LMP-based estimated date of delivery (STEVEN): 08/09/2020. First dating scan (date and location): Today's exam. TECHNIQUE: Real-time scanning was performed of the fetus, with image documentation and biometric measurements. Endovaginal scanning: Not performed COMPARISON: None. FINDINGS: General: A single living intrauterine gestation is present. Presentation: Breech. Placenta: Placental position is anterior , without previa. Amniotic fluid index: 14.3 cm, normal range is 5-24 cm. Single deepest vertical pocket is 4.8 cm. heart rate: 145 beats per minute. Maternal cervical canal: 4.1 cm long. Normal lower limit is 2.5 cm. biometrics: Biparietal diameter: 4.3 centimeters, 19 weeks 0 days Head circumference: 16.5 centimeters, 19 weeks 1 day Abdominal circumference: 13.5 centimeters, 19 weeks 0 days Femur length: 2.8 centimeters, 18 weeks 4 days Clinically estimated gestational age: 18 weeks 2 days Composite gestational age from present scan: 19 weeks 0 days Estimated weight and percentile: 259 grams, 77th percentile Anatomic survey: Neuro: Ventricles are non-dilated at less than 10 mm. Cisterna magna is normal at 3-11 mm. Cerebellum is normal in size and morphology. Nuchal skin fold: Normal at less than 6 mm between 14-21 weeks gestational age. Face: Nose and lips, facial profile are normal. Spine: No evidence for spina bifida. Heart: 4-chambered heart is present, with normal ventricular outflow tracts. Diaphragm: Diaphragm is intact. Stomach: Left-sided stomach is present. Kidneys: No hydronephrosis. Normal is less than 5 mm in 2nd trimester, less than 7 mm in 3rd trimester. Cord: 3-vessel cord has orthotopic insertion. Bladder: Normal in size. Extremities: All 4 extremities identified. IMPRESSION: Single living intrauterine at 18 weeks 2 days, STEVEN 08/09/2024. Estimated weight of 259 grams, 77th percentile. Normal anatomy survey. We strive to produce accurate, complete, and clear reports of imaging services. To assist us in improving patient care, this report was composed using standard report templates and voice recognition software. Therefore, it may contain abnormal punctuation, insertions and/or omissions. Occasional wrong-word or sound-alike substitutions may occur. Though we review the report and make efforts to correct it, we do recommend that the report be read carefully in proper context to recognize any text inaccuracies. Dictated by: Jose Rafael Glynn M.D. on 03/10/2024 at 12:06 Approved by: Jose Rafael Glynn M.D. on 03/10/2024 at 12:11
== END ==
PROVIDERS: PCP Family Medicine; Referring Provider Obstetrics & Gynecology; Visit Provider Obstetrics & Gynecology
DX: Z34.82 Encounter for supervision of other normal pregnancy, second trimester (principal); Z3A.18 18 weeks gestation of pregnancy
CPT/HCPCS: 76811

== ENCOUNTER → 2024-03-22 15:54 | Outpatient (CLI) | payer OTHER, MEDICAID, SELFPAY ==
[2024-03-22 17:06] LABS: Hematocrit 31.6 % (36-46); Hemoglobin 10.9 g/dL (12.0-16.0)
== END ==
PROVIDERS: Obstetrics & Gynecology; PCP Family Medicine; Referring Provider Family Medicine; Visit Provider Family Medicine
DX: Z34.80 Encounter for supervision of other normal pregnancy, unspecified trimester (principal)
CPT/HCPCS: 36415; 82105; 85014; 85018